=== PATIENT | female | born 1985 | race Caucasian/White ===

== ENCOUNTER 2016-07-23 23:58 | Emergency (ER) | payer SELFPAY ==
[2016-07-24 00:34] LABS: BASOPHIL 0.1 % (0-2); EOSINOPHIL 0.3 % (0-5); HCT 32.3 % (37.0-47.0); HGB 11.1 g/dl (12.5-16.0); LYMPHOCYTE 28.1 % (15-48); MCH 28.9 pg (25.0-31.0); MCHC 34.4 g/dL (32.0-36.0); MCV 84.1 fL (78.0-100.0); MONOCYTE 5.1 % (0-12); MPV 11.1 fL (6.0-9.5); NEUTROPHIL 66.4 % (41-80); PLT 221 K/uL (150-400); RBC 3.84 M/uL (4.20-5.40); RDW 15.6 % (11.5-14.0); WBC 10.6 K/uL (4.0-10.5)
[2016-07-24 00:39] LABS: ACETAMINOPHEN (TYLENOL) < 5.0 ug/mL (10.0-30.0); SALICYLATE < 6 ug/mL (0-300)
[2016-07-24 00:40] LABS: ALBUMIN 4.3 g/dL (3.5-5.0); BILIRUBIN - TOTAL 0.2 mg/dL (0.1-1.0); CREATININE 0.9 mg/dL (0.5-1.0); GLOBULIN (CALCULATION) 2.6 g/dL (2.2-4.2); INR 1.08 (0.9-1.2); POTASSIUM 3.5 mmol/L (3.5-5.1); PROTHROMBIN TIME 13.6 SECONDS (11.7-14.0); PTT 22.4 SECONDS (23.2-31.4); TOTAL PROTEIN 6.9 g/dL (6.4-8.3)
[2016-07-24 00:44] LABS: ALCOHOL (ETOH) MEDICAL 215 mg/dL
== END 2016-07-24 02:35 | disposition other institution (70) ==
LOC: FER 23:58
PROVIDERS: Nurse Practitioner Family
DX: S51.012A Laceration without foreign body of left elbow, initial encounter (principal); F33.9 Major depressive disorder, recurrent, unspecified; F17.200 Nicotine dependence, unspecified, uncomplicated; Z91.5 Personal history of self-harm; Z87.828 Personal history of other (healed) physical injury and trauma; X83.8XXA Intentional self-harm by other specified means, initial encounter
CPT/HCPCS: 36415; 80053; 85025; 85610; 85730; G0480; J2405

== ENCOUNTER 2021-07-26 02:04 | Emergency (ER) | payer SELFPAY ==
[2021-07-26 03:06] LABS: BILIRUBIN NEGATIVE (NEGATIVE); BLOOD NEGATIVE Ery/uL (NEGATIVE); CLARITY CLEAR (CLEAR); COLOR YELLOW (YELLOW); GLUCOSE (U) NORMAL (NORMAL); LEUKOCYTES NEGATIVE Leu/uL (NEGATIVE); NITRITE NEGATIVE (NEGATIVE); PROTEIN NEGATIVE (NEGATIVE); SPECIFIC GRAVITY <=1.005 (1.001-1.030); UROBILINOGEN 0.2 mg/dL (0.2-1.0)
[2021-07-26 03:07] LABS: AMPHETAMINES NEGATIVE (NEGATIVE); BARBITURATES NEGATIVE (NEGATIVE); ECSTASY (MDMA) NEGATIVE (NEGATIVE); MARIJUANA (THC) NEGATIVE (NEGATIVE); METHADONE NEGATIVE (NEGATIVE); OPIATES NEGATIVE (NEGATIVE); OXYCODONE NEGATIVE (NEGATIVE)
[2021-07-26 03:41] LABS: BASOPHIL 0.3 % (0-2); EOSINOPHIL 0.8 % (0-5); HCT 39.9 % (37.0-47.0); HGB 13.7 g/dl (12.5-16.0); LYMPHOCYTE 32.3 % (15-48); MCH 32.6 pg (25.0-31.0); MCHC 34.3 g/dL (32.0-36.0); MPV 10.9 fL (6.0-9.5); NEUTROPHIL 56.8 % (41-80); NRBC 0; PLT 176 K/uL (150-400); RDW 12.7 % (11.5-14.0); WBC 6.3 K/uL (4.0-10.5)
[2021-07-26 03:43] LABS: BUN/CREAT RATIO (CALC) 13.5 RATIO; CREATININE 0.52 mg/dL (0.51-0.95); POTASSIUM 3.3 mmol/L (3.5-5.1)
== END 2021-07-26 04:00 | disposition left against medical advice (07) ==
LOC: FER 02:04
PROVIDERS: Internal Medicine
DX: F10.129 Alcohol abuse with intoxication, unspecified (principal); F17.210 Nicotine dependence, cigarettes, uncomplicated; Z53.29 Procedure and treatment not carried out because of patient's decision for other reasons; Y90.4 Blood alcohol level of 80-99 mg/100 ml
CPT/HCPCS: 36415; 80048; 80305; 81003; 85025; G0480; J3411; J3475; J7120